=== PATIENT | male | born 1975 | race Caucasian/White ===

== ENCOUNTER 2023-02-22 16:57 | Inpatient (IN) | payer MEDICAID, SELFPAY ==
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
[2023-02-22 17:29] LABS: Basophils % 0.3 %; Eosinophils # 0.1 10^3/uL (0.0-0.8); Eosinophils % 1.2 %; Hematocrit 45.7 % (37-53); Lymphocytes # 2.2 10^3/uL (0.8-4.8); Lymphocytes % 21.9 %; Mean Corpuscular HGB Conc 35.2 g/dL (30-55); Mean Corpuscular Hemoglobin 33.8 pg (27-33); Mean Platelet Volume 9.3 fL (7.4-10.4); Monocytes # 1.2 10^3/uL (0.2-0.9); Monocytes % 11.3 %; Neutrophils # 6.67 10^3/uL (1.8-7.7); Nucleated Red Blood Cells % 0 %; Platelet Count 272 10^3/cmm (157-399); Red Blood Count 4.76 10^6/uL (3.85-5.65); Red Cell Distribution Width 14.2 % (12.1-15.1); White Blood Count 10.25 10^3/uL (3.29-11.43)
[2023-02-22 17:43] LABS: Alanine Aminotransferase 62 U/L (0-41); Albumin Level 4.7 g/dL (3.5-5.2); Alkaline Phosphatase 148 U/L (40-130); Anion Gap 18.3 (5-19); Aspartate Amino Transferase 89 U/L (0-40); Blood Urea Nitrogen 7 mg/dL (6-20); Calcium 9.9 mg/dL (8.5-10.5); Carbon Dioxide 26 mmol/L (22-29); Chloride 94 mmol/L (98-107); Globulin 2.6 g/dL (1.3-4.6); Glomerular Filtration Rate 72.1 mL/min (90-130); Glucose 114 mg/dL (65-115); Osmolality Calculated 279 mOsm/kg (285-295); Potassium 3.3 mmol/L (3.5-5.1); Sodium 135 mmol/L (136-145); Total Bilirubin 0.9 mg/dL (0.15-1.2); Total Protein 7.3 g/dL (6.6-8.7)
[2023-02-22 17:44] LABS: Acetaminophen < 5.0 ug/mL (10-30); Alcohol Level < 10 mg/dL (0-10); Salicylate < 0.3 mg/dL (3-10)
[2023-02-22 18:13] VITALS: BP 148/102; PULSE 116; RESP 21; O2SAT 95
[2023-02-22 18:20] LABS: Amphetamines Screen Urine Positive (Negative); Barbiturates Screen Urine Negative (Negative); Benzodiazepines Screen Urine Negative (Negative); Cocaine Screen Urine Negative (Negative); Opiate Screen Urine Negative (Negative); PCP Screen Urine Negative (Negative); THC Screen Urine Positive (Negative)
--- NOTE | 2023-02-22 18:43 | PC.NURSE ---
96 hr rights reviewed with patient and with assistance of ER staff X2 @1530. No questions or concerns verbalized by patient to Research And Development Specialist at this time. Patient Copy left @bedside with patient.
[2023-02-22 19:18] VITALS: BP 129/97; PULSE 104; RESP 18; TEMP 36.7; O2SAT 95
[2023-02-22] MEDS: OLANZapine 5 mg ODT PO (20:21)
[2023-02-22 20:22] VITALS: BP 129/97; PULSE 104; RESP 18; TEMP 36.7; O2SAT 95
[2023-02-22] MEDS: nicotine 4 mg lozenge MUCOUS MEM (20:30)
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
[2023-02-23] MEDS: ziprasidone hcl 20 mg Capsule PO (02:12)
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
[2023-02-23 06:00] VITALS: RESP 17
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
[2023-02-23] MEDS: nicotine 21 mg Patch 1 PATCH TRANSDERMA (10:54)
[2023-02-23 14:00] VITALS: BP 139/98; PULSE 108; RESP 18; TEMP 37.1; O2SAT 94
[2023-02-23] MEDS: acetaminophen 325 mg Tablet 650 MG PO (19:57)
[2023-02-23 20:15] VITALS: BP 129/71; PULSE 118; RESP 18; TEMP 36.7; O2SAT 97
[2023-02-24 06:00] VITALS: BP 168/97; PULSE 113; RESP 18; TEMP 37; O2SAT 95
--- NOTE | 2023-02-24 06:24 | PC.NURSE ---
Patient Behavior Patient came to the desk and asked where is Jasom. Nurse said Cesario who? Patient replied Cesario Lundberg Said nurse said he is not here. Patient said. If you see him out there I am looking for him, he does bad things
--- NOTE | 2023-02-24 06:27 | PC.NURSE ---
Around 0130 the patients ankle bracelet started beeping and a recorded voice said it was time to change the battery. The [facility] office who issued the bracelet are aware. At 0630 the bracelet was still beeping.
--- NOTE | 2023-02-24 11:23 | PC.NURSE ---
Patient has come to this nurse two times with concerns that other patients have bags of meth and weed in their pants. This nurse made attempts to inform patient that we search each patient upon arrival; patient aggravated at this. Patient pointing at floor stating that there was a problem. This nurse inspected floor; there was an old alcohol wipe. This nurse disposed of wipe. Patient stated that it was drugs.
[2023-02-24] MEDS: nicotine 4 mg lozenge MUCOUS MEM ×2 (12:23→15:02)
--- NOTE | 2023-02-24 13:47 | W.PM.NPUPNS ---
Subjective NPU Subjective: Patient presented today reporting that he was ready to go home. Otherwise his presentation was frankly psychotic per staff reports and direct observation he heard me speaking in the other room and was convinced that I was speaking to his children and he was describing seeing Talya in the interactions they have with this principal technical writer that never occurred. We discussed the risks, benefits and alternatives of initiating Abilify 10 mg p.o. every morning and he understood and agreed to proceed as is documented in this note. Mental Status Exam MSE Comments: This is a well-nourished well-developed white male in hospital scrubs with limited grooming and eye contact. No abnormal movements except for significant psychomotor agitation. Mostly cooperative with exam in moderate distress. Speech was slightly increased rate normal volume. Mood described as okay, ready to get out of here, affect delusional and hyper. Thought process linear. Thought content: Patient denied suicidal or homicidal ideation, there were no delusions reported but significant paranoid and persecutory delusions noted, he denied auditory or visual hallucinations but many of his reports were clearly perceived by him but did not really occur and he was clearly attending to internal stimuli and reporting auditory and visual hallucinations. Attention and concentration were limited and memory was unreliable but none were formally tested. He is alert and oriented times person and place. Insight, judgment and impulse control are impaired. Vitals/I&O/Wt Last Vital Signs Temp 98.6 F 02/24/23 06:00 Pulse 113 H 02/24/23 06:00 Resp 18 02/24/23 06:00 BP 168/97 02/24/23 06:00 Pulse Ox 95 02/24/23 06:00 O2 Del Method Room Air 02/24/23 06:00 Weight last 48 hrs Weight 74.531 kg Data NPU 02/22/23 17:15 02/22/23 17:15 A&P Assessment and plan (1) Hallucinations: (2) Paranoia: (3) Psychosis: (4) Cannabis use disorder, severe, dependence: (5) Methamphetamine use disorder, severe, dependence: (6) Partner relational problem: (7) Parent-child relational problem: Plan This is a 48-year-old white male with a long history of addiction, marital challenges with divorce and reported history of depression with active methamphetamine addiction who presents psychotic and considering possible medication. 1.? Continue current medication. Start Abilify 10 mg p.o. daily. 2.? Encourage individual, group, and milieu therapy. 3.? Continue q-15-minute checks for safety. 4.? Recommend sober living treatment at the highest level of care to which the patient is willing to commit. Involuntary Hold Information 96 Hour Hold: 96 Hour Involuntary Admission: Yes 96 Hour Hold Ending Date: 02/25/23 96 Hour Hold Ending Time: 17:18 Attestations NPU Medical Necessity Statement*: Inpatient hospitalization is medically necessary and the clinically appropriate intervention, at this time. We will monitor medications and make changes as indicated. Likely length of stay is three to five days. Coding Level of Care Code Acute Code for g Fwd Diagnoses Hallucinations R44.3 Paranoia F22 Psychosis F29 Cannabis use disorder, severe, dependence F12.20 Methamphetamine use disorder, severe, dependence F15.20 Partner relational problem Z63.0 Parent-child relational problem Z62.820
[2023-02-24 14:00] VITALS: BP 139/86; PULSE 113; RESP 18; TEMP 37; O2SAT 93
[2023-02-24] MEDS: ARIPiprazole 10 mg Tablet PO (16:47)
[2023-02-24 20:30] VITALS: BP 147/86; PULSE 92; RESP 20; TEMP 36.9; O2SAT 96
--- NOTE | 2023-02-24 21:18 | PC.NURSE ---
PT IN ROOM AND IS OBVIOUSLY HAVING DELUSIONS AND SEEING THINGS THAT ARE NOT THERE. PT REPORTED TO THIS RN I SAW YOU TALKING TO MY SON, PT WAS INFORMED THAT THIS RN DOES NOT KNOW HIS SON AND WAS NOT SPEAKING TO HIM. PT THEN LOOKED CONFUSED AND SAID YA YOU WERE I KNOW IT WAS YOU AND IT WAS DEFINITELY HIM. PT DENIES SI/HI AND AVH, PT IS OBSERVED HAVING VISUAL AND AUDITORY HALLUCINATIONS THAT HE RESPONDS TO. PT DECLINES ANY PRN MEDICATIONS. RATES ANXIETY AND DEPRESSION 0/10. ALL QUESTIONS ANSWERED AND SUPPORT VOICES. PT ENCOURAGED TO TAKE SOMETHING FOR ANXIETY OR TO HELP HIM SLEEP BUT CONTINUES TO DECLINE. SUPPORT VOICED.
[2023-02-24] MEDS: haloperidol inj 5 mg/mL INJ 1 mL IM (23:54)
[2023-02-24] MEDS: LORazepam 2 mg/mL INJ 1 mL IM (23:55)
--- NOTE | 2023-02-25 00:07 | PC.NURSE ---
PT CONTINUES TO BE AGITATED, GOING INTO ROOMS, YELLING LOUDLY. PT WAS OBSERVED GOING INTO 170 AND WOKE UP A PT TELLING OTHER PT THAT ITS DANGEROUS WAKE UP. STAFF IMMEDIATELY RESPONDED AND PT WAS REDIRECTED AWAY FROM PT AND EDUCATED FOR THE 5TH TIME PTS ARE NOT ALLOWED IN OTHER PTS ROOMS. PT KEPT SAYING I KNOW I KNOW SHE FELL OUT OF BED AND I WAS HELPING HER. THE OTHER PT IN FACT DID NOT FALL OUT OF BED HE WOKE THE PT UP. PT THEN CONTINUED TO YELL AND BECAME VERY LOUD WAKING UP OTHER PTS ON THE [place]AL[place]. PT WAS OBSERVED LOOKING FOR MY CRACK PIPE, WHILE FEELING THE TOP OF THE DOORS LOOKING FOR HIS CRACK PIPE. PT WOULD NOT BE QUIET WHEN DIRECTED TO DO SO. PT DID GO INTO HIS ROOM BRIEFLY. STAFF TO PT ROOM AT 0001 PT REFUSED TO TAKE INJECTIONS. PT WAS EDUCATED THAT SINCE HE IS UNABLE TO STAY OUT OF ROOMS, WON'T STOP WAKING UP PATIENTS, WILL NOT STOP BEING LOUD AND YELLING AND HAS BEEN OBSERVED TALKING TO UNSEEN OTHERS, ATTEMPTING TO LEAVE UNIT, HITTING ON DOORS AND MAY ETC, HE WILL NEED TO TAKE MEDICATIONS TO CALM DOWN. RN AND IRON POURER IN ROOM ENCOURAGING PT TO TAKE INJECTIONS. PT KEPT SAYING LET ME GET A DRINK THEN I WILL LET YOU GIVE IT TO ME. PT STILL DID NOT TAKE IT, PT THEN STATED, OH IF YOU LET ME GO PEE THEN I WILL LET YOU GIVE ME THE SHOTS. PT THEN WENT TO THE BATHROOM CAME OUT AND CONTINUED TO REFUSE THE INJECTIONS SAYING THAT THIS RN AND IRON POURER TAMPERED WITH THE MEDICATIONS AND NOW YOU BOTH ARE GOING TO HAVE TAMPERING CHARGES. PT WANTED THE HOSPITAL AIDES AND ASSISTANTS TEACHER TO LOOK AT THE INJECTIONS AND TELL HIM WHAT COLOR THEY WERE BEFORE HE ALLOWED THIS RN TO GIVE THE INJECTION. PT WAS EVENTUALLY GIVEN HALDOL 5 MG AND ATIVAN 2 MG IM TO LEFT DELTOID. PT REFUSED TO TAKE BENADRYL STATING IT MAKES ME ITCH AND MAKES ME CRAZY. Allergies were REVIEWED AND PT HAS NO ALLERGY TO BENADRYL, THIS RN INFORMED PT WE WOULD SEE HOW THE ATIVAN AND HALDOL WORKED AND IF ANXIETY, AGITATION IMPROVED WE WOULD NOT NEED GIVE IT. PT AGAIN STATED HE CAN NOT TAKE BENADRYL AND I'M NOT TAKING IT YOUR TRYING TO KILL ME AREN'T YOU, YOU ALL ARE, PT WAS ASSURED NO ONE IS TRYING TO KILL ANYBODY JUST TRYING TO HELP HIM REST. BENADRYL NOT GIVEN DUE TO PTS INCREASED PARANOIA AND INSISTENCE THAT HE CAN NOT TAKE IT DUE TO MAKING HIM ITCH AND BE CRAZIER. DR. MCCORMICK NOTIFIED. PT CURRENTLY IN BATHROOM AND OBSERVED STILL LOOKING FOR MY PIPE. CLOSE OBSERVATION AND 15 MINUTE CHECKS CONTINUE FOR SAFETY OF PT.
--- NOTE | 2023-02-25 01:07 | PC.NURSE ---
ATIVAN 2 MG AND HALDOL 5 MG IM DEEMED EFFECTIVE. PT IS CURRENTLY IN BED RESTING WITH EYES CLOSED, NO AGITATION OR ANXIETY NOTED AT THIS TIME.
[2023-02-25 06:00] VITALS: BP 106/58; PULSE 88; RESP 17; O2SAT 96
--- NOTE | 2023-02-25 08:33 | P.NPUPN_ITS ---
Subjective NPU 2 Subjective: Patient presented today reporting that he is still seen with the strange thoughts. He continues to report seeing his children on the unit and thinking that they do not. We discussed him continuing the medication and being here until the psychosis breaks. We discussed that be here tomorrow and he would have his own decisions about hospitalization, discharge medications. Mental Status Exam 2 MSE Comments: This is a well-nourished well-developed white male in hospital scrubs with limited grooming and eye contact. No abnormal movements except for significant psychomotor agitation. Mostly cooperative with exam in moderate distress. Speech was slightly increased rate normal volume. Mood described as okay, ready to get out of here, affect delusional and hyper. Thought process linear. Thought content: Patient denied suicidal or homicidal ideation, there were no delusions reported but significant paranoid and persecutory delusions noted, he denied auditory or visual hallucinations but many of his reports were clearly perceived by him but did not really occur and he was clearly attending to internal stimuli and reporting auditory and visual hallucinations. Attention and concentration were limited and memory was unreliable but none were formally tested. He is alert and oriented times person and place. Insight, judgment and impulse control are impaired. Vitals/I&O/Wt Last Vital Signs Temp 98.5 F 02/24/23 20:30 Pulse 88 02/25/23 06:00 Resp 17 02/25/23 06:00 BP 106/58 02/25/23 06:00 Pulse Ox 96 02/25/23 06:00 O2 Del Method Room Air 02/25/23 06:00 Data NPU 02/22/23 17:15 02/22/23 17:15 A&P Assessment and plan (1) Hallucinations: (2) Paranoia: (3) Psychosis: (4) Cannabis use disorder, severe, dependence: (5) Methamphetamine use disorder, severe, dependence: (6) Partner relational problem: (7) Parent-child relational problem: Plan This is a 48-year-old white male with a long history of addiction, marital challenges with divorce and reported history of depression with active methamphetamine addiction who presents psychotic and considering possible medication. 1.? Continue current medication. Started Abilify 10 mg p.o. daily. 2.? Encourage individual, group, and milieu therapy. 3.? Continue q-15-minute checks for safety. 4.? Recommend sober living treatment at the highest level of care to which the patient is willing to commit. Involuntary Hold Information 2 96 Hour Hold: 96 Hour Involuntary Admission: Yes 96 Hour Hold Ending Date: 02/25/23 96 Hour Hold Ending Time: 17:18 Attestations NPU 2 Medical Necessity Statement*: Inpatient hospitalization is medically necessary and the clinically appropriate intervention, at this time. We will monitor medications and make changes as indicated. Likely length of stay is three to five days. Coding Level of Care Code Acute Code for Chg Fwd Diagnoses Hallucinations R44.3 Paranoia F22 Psychosis F29 Cannabis use disorder, severe, dependence F12.20 Methamphetamine use disorder, severe, dependence F15.20 Partner relational problem Z63.0 Parent-child relational problem Z62.820
[2023-02-25] MEDS: ARIPiprazole 10 mg Tablet PO (09:04)
[2023-02-25] MEDS: nicotine 21 mg Patch 1 PATCH TRANSDERMA (09:08)
[2023-02-25 14:00] VITALS: BP 122/76; PULSE 96; RESP 14; TEMP 37.1; O2SAT 99
[2023-02-25] MEDS: nicotine 4 mg lozenge MUCOUS MEM (17:22)
[2023-02-25 20:36] VITALS: RESP 17
--- NOTE | 2023-02-25 20:49 | PC.NURSE ---
IN BED RESTING AROUSES TO VOICE BRIEFLY. DENIES PAIN, SI/HI AND AVH. PT THEN ROLLED OVER AND WENT BACK TO SLEEP. SUPPORT VOICED.
[2023-02-26 06:00] VITALS: BP 141/88; PULSE 97; RESP 18; TEMP 37; O2SAT 97
[2023-02-26] MEDS: ARIPiprazole 10 mg Tablet PO (08:05)
[2023-02-26] MEDS: acetaminophen 325 mg Tablet 650 MG PO ×2 (08:05→17:59)
[2023-02-26] MEDS: nicotine 21 mg Patch 1 PATCH TRANSDERMA (10:28)
[2023-02-26] MEDS: fixodent 39 gm Tube 1 APPLIC DENTAL (11:16)
[2023-02-26] MEDS: nicotine 4 mg lozenge MUCOUS MEM ×4 (11:57→18:23)
[2023-02-26 13:32] VITALS: BP 112/77; PULSE 75; RESP 16; TEMP 36.6; O2SAT 95
--- NOTE | 2023-02-26 17:43 | P.NPUPN_ITS ---
Subjective NPU 2 Subjective: 48-year-old male with psychosis currently on Abilify who continues to state that he is ready to go home. He continued to appear paranoid on the milieu. He reported that he felt that others were talking to his girlfriend and he continued to think that the financial writer of this note was speaking directly to his children. The patient had appeared at times to be having a conversation with someone that was in his room. Mental Status Exam 2 MSE Comments: This is a well-nourished well-developed white male in hospital scrubs with poor grooming and fleeting eye contact. No abnormal movements except for significant psychomotor agitation. He was minimally cooperative with exam in moderate distress. Speech was slightly increased in rate and normal volume. Mood described as good stating he was ready to leave. His affect was bizarre. His thought process was linear. Thought content: Patient denied suicidal or homicidal ideation, there was significant persecutory delusions noted, he did appear to be responding to internal stimuli visually and auditory. Attention and concentration were limited and memory was unreliable but none were formally tested. He is alert and oriented times person and place. Insight, judgment and impulse control are impaired. Vitals/I&O/Wt Last Vital Signs Temp 98 F 02/26/23 13:32 Pulse 75 02/26/23 13:32 Resp 16 02/26/23 13:32 BP 112/77 02/26/23 13:32 Pulse Ox 95 02/26/23 13:32 O2 Del Method Room Air 02/26/23 13:32 Data NPU 02/22/23 17:15 02/22/23 17:15 A&P Assessment and plan (1) Hallucinations: (2) Paranoia: (3) Psychosis: (4) Cannabis use disorder, severe, dependence: (5) Methamphetamine use disorder, severe, dependence: (6) Partner relational problem: (7) Parent-child relational problem: Plan This is a 48-year-old white male with a long history of addiction, marital challenges with divorce and reported history of depression with active methamphetamine addiction who presents psychotic and considering possible medication. 1.? Continue current medication. Increase abilify to 15mg daily. 2.? Encourage individual, group, and milieu therapy. 3.? Continue q-15-minute checks for safety. 4.? Recommend sober living treatment at the highest level of care to which the patient is willing to commit. Involuntary Hold Information 2 96 Hour Hold: 96 Hour Involuntary Admission: Yes 96 Hour Hold Ending Date: 02/25/23 96 Hour Hold Ending Time: 17:18 Attestations NPU 2 Medical Necessity Statement*: Inpatient hospitalization is medically necessary and the clinically appropriate intervention, at this time. We will monitor medications and make changes as indicated. His likely length of stay is four to six days. Coding Level of Care Code Acute Code for g Fwd Diagnoses Hallucinations R44.3 Paranoia F22 Psychosis F29 Cannabis use disorder, severe, dependence F12.20 Methamphetamine use disorder, severe, dependence F15.20 Partner relational problem Z63.0 Parent-child relational problem Z62.820
--- NOTE | 2023-02-26 20:16 | PC.NURSE ---
IN BED RESTING AROUSES TO VOICE BRIEFLY. DENIES PAIN, DENIES SI/HI AND AVH AT THIS TIME. RATES DEPRESSION AND ANXIETY 2/10. DECLINES MEDICATIONS AT THIS TIME. PT IS NOTED TO HAVE A BLAND, FLAT AFFECT, ISOLATES AND WITHDRAWS TO ROOM. PT ENCOURAGED TO INTERACT WITH STAFF AND PEERS BUT DECLINES STATING HE WOULD RATHER STAY IN HIS ROOM. ALL QUESTIONS ANSWERED AND SUPPORT VOICED.
[2023-02-26 20:18] VITALS: BP 117/75; PULSE 88; RESP 16; TEMP 36.9; O2SAT 97
[2023-02-27 06:00] VITALS: BP 126/77; PULSE 97; RESP 15; TEMP 36.8; O2SAT 98
[2023-02-27] MEDS: nicotine 4 mg lozenge MUCOUS MEM (08:22)
[2023-02-27] MEDS: ARIPiprazole 10 mg Tablet 15 MG PO (08:22)
[2023-02-27] MEDS: nicotine 21 mg Patch 1 PATCH TRANSDERMA (09:06)
[2023-02-27] MEDS: acetaminophen 325 mg Tablet 650 MG PO ×2 (10:10→16:31)
--- NOTE | 2023-02-27 13:54 | P.NPUPN_ITS ---
Subjective NPU 2 Subjective: 48-year-old male with psychosis currently on Abilify admitted in the context of methamphetamine use. Patient reports that he is motivated to go back to work. He reports no side effects from his medication. He acknowledged that his methamphetamine use had contributed to his hospitalization. He denied having any unusual thoughts at this time. He reports that he wishes to go home to live with his family upon discharge. No unusual behavior was noted today with no concerns regarding family members being on the unit or thoughts about being persecuted or that staff was secretly communicating with members of his family. Mental Status Exam 2 MSE Comments: This is a well-nourished well-developed white male in hospital scrubs with improved grooming and fair eye contact. There is no evidence of any abnormal involuntary motor movements tics or tremors appreciated. He was cooperative with exam in no acute distress. Speech was normal in rate and normal in volume. Mood described as better. His affect was brighter today. His thought process was linear. Thought content: Patient denied suicidal or homicidal ideation. He did not appear to be responding to internal stimuli. There is no evidence of delusional thinking. There was no overt paranoia. Attention and concentration appeared better. He is alert and oriented times person, place and time today. Insight was improving. judgment was guarded. Impulse control is poor. Vitals/I&O/Wt Last Vital Signs Temp 98.2 F 02/27/23 06:00 Pulse 97 02/27/23 06:00 Resp 15 02/27/23 06:00 BP 126/77 02/27/23 06:00 Pulse Ox 98 02/27/23 06:00 O2 Del Method Room Air 02/27/23 06:00 Weight last 48 hrs Weight 75.466 kg Data NPU 02/22/23 17:15 02/22/23 17:15 A&P Assessment and plan (1) Hallucinations: (2) Paranoia: (3) Psychosis: (4) Cannabis use disorder, severe, dependence: (5) Methamphetamine use disorder, severe, dependence: (6) Partner relational problem: (7) Parent-child relational problem: Plan This is a 48-year-old white male with a long history of addiction, marital challenges with divorce and reported history of depression with active methamphetamine addiction who presents psychotic and considering possible medication. 1.? Continue current medication. Continue abilify at 15mg daily. 2.? Encourage individual, group, and milieu therapy. 3.? Continue q-15-minute checks for safety. 4.? Recommend sober living treatment at the highest level of care to which the patient is willing to commit. 5. Psychosis improving rapidly with abilify. Involuntary Hold Information 2 96 Hour Hold: 96 Hour Involuntary Admission: Yes 96 Hour Hold Ending Date: 02/25/23 96 Hour Hold Ending Time: 17:18 Attestations NPU 2 Medical Necessity Statement*: Inpatient hospitalization is medically necessary and the clinically appropriate intervention, at this time. We will monitor medications and make changes as indicated. His likely length of stay is two to three days. Coding Level of Care Code Acute Code for g Fwd Diagnoses Hallucinations R44.3 Paranoia F22 Psychosis F29 Cannabis use disorder, severe, dependence F12.20 Methamphetamine use disorder, severe, dependence F15.20 Partner relational problem Z63.0 Parent-child relational problem Z62.820
[2023-02-27 14:00] VITALS: BP 127/85; PULSE 83; RESP 16; TEMP 36.5; O2SAT 98
[2023-02-27 19:29] VITALS: BP 137/84; PULSE 81; RESP 15; TEMP 37.2; O2SAT 97
[2023-02-28 06:00] VITALS: BP 124/80; PULSE 93; RESP 15; TEMP 37.1; O2SAT 98
[2023-02-28] MEDS: nicotine 21 mg Patch 1 PATCH TRANSDERMA (08:12)
[2023-02-28] MEDS: ARIPiprazole 10 mg Tablet 15 MG PO (08:12)
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
[2023-02-28 13:41] VITALS: BP 124/80; PULSE 93; RESP 15; TEMP 37.1; O2SAT 98
== END 2023-02-28 16:02 | disposition home or self-care (01) | DRG 885 ==
LOC: ER 17:44 → NP 18:03
PROVIDERS: Admitting Provider Psychiatry & Neurology Psychiatry; Emergency Provider Emergency Medicine; PCP Urology; Visit Provider Psychiatry & Neurology Psychiatry
DX: F22 Delusional disorders (principal); F15.20 Other stimulant dependence, uncomplicated; F17.210 Nicotine dependence, cigarettes, uncomplicated; F12.20 Cannabis dependence, uncomplicated; Z63.5 Disruption of family by separation and divorce; Z62.820 Parent-biological child conflict
CPT/HCPCS: 36415; 80053; 80306; 80307; 85025; 96372; 97150; 97165; 99285; J1200; J1630; J2060